=== PATIENT | male | born 1955 | race Caucasian/White ===

== ENCOUNTER 2024-06-08 14:44 | Emergency (ER) | payer MEDICARE, SELFPAY ==
[2024-06-08 14:55] VITALS: BP 147/85; PULSE 80; RESP 18; TEMP 36.6; O2SAT 97
--- NOTE | 2024-06-08 14:58 | ED.URI ---
HPI - URI/Sore Throat General Chief Complaint: Upper Respiratory Infection Stated Complaint: COUGH Time Seen by Provider: 06/08/24 15:01 History of Present Illness HPI Narrative: 68-year-old male presented for complaint of nasal congestion and sinus pressure for 2 weeks. Endorses nasal drainage at night causing him to cough. Taking Dayquil and Nyquil. Denies sob, wheezing, n/v/d/f/c. Related Data Home Medications ?Medication ?Instructions ?Recorded ?Confirmed ?Last Taken ?Type No Home Medications 06/08/24 06/08/24 Unknown History Allergies Allergy/AdvReac Type Severity Reaction Status Date / Time codeine AdvReac Mild Rash Verified 06/08/24 14:48 Review of Systems Review of Systems: CONSTITUTIONAL: Denies body aches, fever, chills, or sweats. EYES: Denies visual changes, redness, or discharge. ENT: reports rhinorrhea, congestion, denies sore throat, otalgia. CARDIOVASCULAR: Denies chest pain, palpitations, or edema. RESPIRATORY: Denies dyspnea. GASTROINTESTINAL: Denies abdominal pain, nausea, vomiting, or diarrhea. NEUROLOGIC: Denies headache Exam Narrative: GENERAL: well-appearing, no acute distress. EYES: conjunctivae clear ENT: Mucous membranes moist. Nasal congestion. TMs pearly weston with normal light reflex bilaterally; no tragal tenderness. Oropharynx erythematous without lesions. No drooling, no hoarseness, no trismus, uvula midline. No tripod positioning, hot potato voice, or soft palate swelling. NECK: Supple. No lymphadenopathy CHEST: Clear to auscultation, breath sounds equal. No respiratory distress, speaks in full sentences. HEART: Regular rate and rhythm. No murmur heard. SKIN: Warm, dry, no rash. NEURO: Alert and oriented x3. Course Course Emergency Course: Patient is aware of diagnosis, understands and agrees to treatment plan. Anticipatory guidance given. Patient agrees to follow-up as directed and is aware of reasons to seek care at the emergency department. Portions of this record may have been created with voice recognition software Level of Care: Express Care Visit Vital Signs Vital signs: Vital Signs Temperature 97.9 F 06/08/24 14:55 Pulse Rate 80 06/08/24 14:55 Respiratory Rate 18 06/08/24 14:55 Blood Pressure 147/85 H 06/08/24 14:55 Pulse Oximetry 97 06/08/24 14:55 Oxygen Delivery Room Air 06/08/24 14:55 Temperature 97.9 F 06/08/24 14:55 Pulse Rate 80 06/08/24 14:55 Respiratory Rate 18 06/08/24 14:55 Blood Pressure 147/85 H 06/08/24 14:55 Pulse Oximetry 97 06/08/24 14:55 Oxygen Delivery Room Air 06/08/24 14:55 MDM - URI/Sore Throat MDM Narrative Medical decision making narrative: Discussed physical exam findings consistent with sinusitis. Reviewed prescriptions. Advise supportive treatments. Patient is appropriate for outpatient treatment and follow-up. Differential Diagnosis Differential diagnosis: Likely upper respiratory infection, sinusitis, viral infection and pharyngitis Discharge Plan Discharge Clinical Impression: Sinusitis Patient Disposition: Home, Self-Care Condition: Stable Instructions: Antibiotic Form, Sinusitis (ED) Additional Instructions: Take antibiotic as directed Recommendations: Flonase spray and Zyrtec (or Claritin/Shaylee) over the counter Cough syrup may cause drowsiness; avoid driving or take it at night time. Tylenol 1000mg every 8 hours as needed for pain Symptomatic treatment includes: rest, fluids, and increase humidity of the air at home. Follow up with your primary care provider in 1 week. Go to the ER for worsening symptoms or concerns. Patient Language: Turkish Prescriptions: New amoxicillin-pot clavulanate 875-125 mg tablet 1 tablet PO Q12H 7 Days Qty: 14 0RF No Action No Home Medications Follow-up/Referrals: PHYSICIAN,[employer] PRESS ADJUSTER [Primary Care Provider] - Time of Disposition: 15:07
== END 2024-06-08 15:08 | disposition home or self-care (01) ==
PROVIDERS: Emergency Provider Nurse Practitioner Family
DX: J32.9 Chronic sinusitis, unspecified (principal)
CPT/HCPCS: 99203; G0463

== ENCOUNTER 2025-03-08 16:49 | Emergency (ER) | payer MEDICARE, SELFPAY ==
--- NOTE | ~2025-03-08 | XR_ITS ---
EXAMINATION: XR chest 2V, 03/08/2025 17:50 CDT HISTORY: l lobe crackles, cough, hiccups for 1 week COMPARISON: No comparisons available. Technique: 2 views obtained. Findings: Small basilar infiltrates No pneumothorax. Heart is normal size. Mediastinal and hilar contours are within normal limits. Bony thorax no acute abnormality. Impression: Early basilar pneumonia Reviewed, dictated and finalized at location A. Impression: Early basilar pneumonia
[2025-03-08 17:02] VITALS: BP 150/87; PULSE 76; RESP 16; TEMP 36.5; O2SAT 98
--- NOTE | 2025-03-08 17:48 | ED_ITS ---
HPI - URI/Sore Throat General Chief Complaint: Upper Respiratory Infection Stated Complaint: Cough/Hiccups Time Seen by Provider: 03/08/25 17:40 Source: patient and RN notes reviewed Mode of arrival: ambulatory Limitations: no limitations History of Present Illness HPI Narrative: 69-year-old male presents Express Care complaining of cough, hiccups, congestion, ear fullness for the last week. Patient says he has a mucopurulent productive cough. Patient denies any chest pain shortness of breath, fevers, body aches, chills, nausea vomiting, diarrhea, sore throat, runny nose. Patient said he will episodes of hiccups that will last for about a however then subside and then shortly return. Patient said that his father recently had viral pneumonia and he was exposed and unsure if it is when he has or not. Patient denies any significant past medical history. Related Data Allergies Allergy/AdvReac Type Severity Reaction Status Date / Time codeine AdvReac Mild Rash Verified 03/08/25 17:22 Review of Systems Review of Systems: CONSTITUTIONAL: Denies fever, chills, or sweats. EYES: Denies visual changes, redness, or discharge. ENT: Denies rhinorrhea, or otalgia. Positive for hiccups, congestion, ear fullness. CARDIOVASCULAR: Denies chest pain, palpitations, dizziness, lightheadedness, or edema. RESPIRATORY: Positive for cough. Negative for wheezing Or dyspnea. GASTROINTESTINAL: Denies abdominal pain, nausea, vomiting, or diarrhea. GENITOURINARY: Denies dysuria or hematuria. SKIN: Denies rash or itching. MUSCULOSKELETAL: Denies back pain, joint pain, or myalgia. NEUROLOGIC: Denies headache, numbness, or weakness. PSYCHIATRIC: Denies anxiety or depression. All other systems reviewed are negative, except as documented in HPI. PMFSH Comments At the time of my signature, I reviewed and agree with the nursing past medical, surgical, social, and family history. There is no relevant family history pertinent to the patient complaint. Exam Narrative: GENERAL: This is a well-nourished, well-developed adult, in no apparent distress. They are non ill-appearing, nontoxic appearing. HEAD: normocephalic, atraumatic. EYES: Sclera clear/white. Conjunctiva normal. Vision is grossly intact. Extraocular movements intact EARS: External ears normal, auditory canals clear and without drainage, TMs normal without perforation. Hearing grossly intact. NOSE: External nose normal with no obvious nasal discharge, nasal turbinates boggy, no rhinorrhea. THROAT: Mucous membranes moist, posterior pharynx boggy without erythema or swelling. Uvula midline. Postnasal drip present. NECK: Neck supple, non-tender without lymphadenopathy, masses or thyromegaly. CARDIOVASCULAR: Regular rate and rhythm without murmurs, gallops, or rubs. RESPIRATORY: Crackles throughout the bilateral lower lobes.. Breath sounds equal bilaterally. No wheezes, or rhonchi. SKIN: warm, Dry, intact with no suspicious lesions or rash, good texture and turgor. NEURO: awake, alert, and oriented to person, place and time. There were no obvious focal neurologic abnormalities. EXTREMITIES: No joint tenderness, effusion, or edema noted. BACK: Nontender without deformity. No CVA tenderness. Course Course Emergency Course: Portions of this record may have been created with voice recognition software Level of Care: Express Care Visit Vital Signs Vital signs: Vital Signs Temperature 97.7 F 03/08/25 17:02 Pulse Rate 76 03/08/25 17:02 Respiratory Rate 16 03/08/25 17:02 Blood Pressure 150/87 H 03/08/25 17:02 Pulse Oximetry 98 03/08/25 17:02 Temperature 97.7 F 03/08/25 17:02 Pulse Rate 76 03/08/25 17:02 Respiratory Rate 16 03/08/25 17:02 Blood Pressure 150/87 H 03/08/25 17:02 Pulse Oximetry 98 03/08/25 17:02 Oxygen Delivery Room Air 03/08/25 17:09 Reviewed MDM - URI/Sore Throat [facility] Narrative Medical decision making narrative: Chest x-ray shows shows right basilar pneumonia. Will treat patient with Augmentin and azithromycin. Discussed physical exam findings. Advised supportive measures and signs/symptoms to go to the ER. Pt is appropriate for outpt treatment and f/u. Differential Diagnosis Differential diagnosis: Likely upper respiratory infection, sinusitis, bronchitis and other (Pneumonia) Imaging Data Radiologist's impression: ITS Impressions Chest X-Ray 03/08/25 18:04 Impression: Early basilar pneumonia Critical Care Time Critical Care Time Critical Care Time: No Discharge Plan Discharge Clinical Impression: Pneumonia Qualifiers: Pneumonia type: due to unspecified organism Laterality: right Lung location: lower lobe of lung Qualified Code(s): J18.9 - Pneumonia, unspecified organism Patient Disposition: Home Condition: Stable Instructions: Antibiotic Form, Pneumonia (ED) Additional Instructions: Chest x-ray shows right basilar pneumonia. Take antibiotics as directed until complete. Finish them even if you start to feel better. eat small frequent meals. Get lots of rest and drink fluids. You may take ibuprofen 600 mg to 800 mg every 6-8 hours. Do not exceed more than 800 mg of ibuprofen per dose. Do not exceed more than 3200 mg ibuprofen in a day. You may take up to 1000 mg Tylenol every 6-8 hours. Do not exceed 1000 mg per dose, do exceed more than 4000 mg of Tylenol in a day. Follow-up with PCP in 3-5 days Go to the ER for worsening symptoms, chest pains, difficulty breathing, nausea, vomiting, weakness, confusion, fevers, or any serious concerns. Patient Language: Icelandic Prescriptions: New azithromycin 250 mg tablet See Rx Instructions .ROUTE .COMPLEX Qty: 6 0RF Rx Instructions: For 250 mg dose pack: take 500 mg today (day 1), then 250 mg for 4 days (days 2-5) amoxicillin-pot clavulanate 875-125 mg tablet 1 tablet PO Q12H 5 Days Qty: 10 0RF Follow-up/Referrals: PHYSICIAN,PRESS SETUP OPERATOR [Primary Care Provider, Internal Medicine] Time of Disposition: 18:37
== END 2025-03-08 18:40 | disposition home or self-care (01) ==
DX: J18.9 Pneumonia, unspecified organism (principal)
CPT/HCPCS: 71046; 99213; G0463